=== PATIENT | female | born 1940 | race Hispanic/Latino ===

== ENCOUNTER → 2018-12-10 | Outpatient (CLI) | payer MEDICARE | END | disposition home or self-care (01) | LOC: SHCH 07:33 | PROVIDERS: ATTEND Internal Medicine Cardiovascular Disease | DX: I70.293 Other atherosclerosis of native arteries of extremities, bilateral legs (principal) | CPT/HCPCS: 93922 ==

== ENCOUNTER → 2019-01-01 | Outpatient (CLI) | payer MEDICARE | END | disposition home or self-care (01) | LOC: SHCH 07:57 | PROVIDERS: ATTEND Internal Medicine Cardiovascular Disease | DX: I48.1 Persistent atrial fibrillation (principal) | CPT/HCPCS: 93306 ==